=== PATIENT | female | born 1970 | race Caucasian/White ===

== ENCOUNTER 2021-06-14 01:03 | Inpatient (IN) ==
[2021-06-14 02:38] LABS: Basophils % 0.4 % (0.0-0.8); Eosinophils # 0.2 10*3/uL (0.0-0.87); Hematocrit 39.2 VOL% (35.7-47.0); Immature Granulocytes % 0.4 %; Immature Granulocytes Absolute 0.03 #; Lymphocytes % 52.9 % (21.3-54.2); Mean Corpuscular HGB Conc 33.2 GM/DL (32-36); Mean Corpuscular Volume 84.5 FL (87-102); Mean Platelet Volume 9.5 FL (9.6-12.0); Monocytes % 6.3 % (1.7-12.7); Platelet Count 251 T/CUMM (130-400); Red Blood Count 4.64 MC/CUMM (3.8-5.5); Red Cell Distribution Width 14.3 % (9.3-17.3); White Blood Count 7.6 T/CUMM (4-12)
[2021-06-14 02:50] LABS: Barbiturates Screen,Urine Negative (Negative); Benzodiazepines Screen,Urine Negative (Negative); Cannabinoid Screen,Urine Negative (Negative); Opiate Screen,Urine Negative (Negative); Phencyclidine Screen,Urine Negative (Negative)
[2021-06-14 02:51] LABS: Alanine Aminotransferase 31 U/L (13-56); Albumin 3.8 G/DL (3.4-5.0); Alkaline Phosphatase 62 U/L (45-117); Aspartate Amino Transferase 11 U/L (0-37); Blood Urea Nitrogen 11 MG/DL (7-18); Calcium 8.8 MG/DL (8.5-10.1); Carbon Dioxide 28 MMOL/L (21-32); Estimated Glom Filtration Rate 127 ML/MIN; Glucose 93 MG/DL (74-106); Osmolality,Calculated 258.8 MOS/KG (273-304); Potassium 3.5 MMOL/L (3.5-5.1); Sodium 130 MMOL/L (136-145)
[2021-06-14 02:54] LABS: Acetaminophen < 2.0 UG/ML (10-30); Salicylate 4.5 MG/DL (2.8-20)
[2021-06-14 03:12] LABS: Eosinophils 2 % (0-10); Lymphocytes 49 % (20-55); Microcytosis 1+; Platelet Estimate Normal; Segmented Neutrophils 43 % (50-85); Total Cells Counted 100
[2021-06-14 03:13] LABS: Polychromasia Slight; Stomatocytes Slight
[2021-06-14] MEDS ORDERED: ALBUTEROL 2.5 MG/3 ML NEB RESP TX PRN (04:49)
[2021-06-14 06:17] VITALS: BP 149/94
[2021-06-14 06:38] LABS: Albumin 3.4 G/DL (3.4-5.0); Bilirubin,Total 0.5 MG/DL (0.20-1.00); Calcium 8.5 MG/DL (8.5-10.1); Osmolality,Calculated 260.7 MOS/KG (273-304); Potassium 3.4 MMOL/L (3.5-5.1); Total Protein 6.4 G/DL (6.4-8.2)
[2021-06-14] MEDS: SODIUM CHLORIDE 0.9% 1,000 ML IV SCH ×3 (07:30→22:33)
[2021-06-14] MEDS: ALBUTEROL/IPRATROPIUM 3 ML NEB RESP TX SCH ×3 (08:08→19:00)
[2021-06-14] MEDS: amLODIPine 10 MG TABLET PO SCH (09:51)
[2021-06-14] MEDS: PANTOPRAZOLE 40 MG VIAL IV SCH (09:52)
[2021-06-14] MEDS: ENOXAPARIN 40 MG/0.4 ML SYRINGE SUBCUT SCH (09:52)
[2021-06-14] MEDS: hydrALAZINE 20 MG/1 ML VIAL IV PRN (11:10)
[2021-06-14 13:31] LABS: Albumin 3.4 G/DL (3.4-5.0); Bilirubin,Total 0.4 MG/DL (0.20-1.00); Calcium 8.6 MG/DL (8.5-10.1); Osmolality,Calculated 260.7 MOS/KG (273-304); Potassium 3.7 MMOL/L (3.5-5.1); Total Protein 6.3 G/DL (6.4-8.2)
[2021-06-14] MEDS: ACETAMINOPHEN 325 MG TABLET PO PRN (13:43)
[2021-06-14] MEDS ORDERED: NICOTINE 21 MG/24 HR PATCH TRANSDERM PRN (14:21)
[2021-06-14] MEDS: ONDANSETRON 4 MG/2 ML VIAL IV PRN (14:30)
[2021-06-14] MEDS: cloNIDine 0.1 MG TABLET PO SCH (15:23)
[2021-06-14] MEDS ORDERED: LORazepam 2 MG/1 ML VIAL ONE (15:43)
[2021-06-14] MEDS: LORazepam 2 MG/1 ML VIAL IV PRN (15:47)
[2021-06-14 20:58] LABS: Albumin 3.2 G/DL (3.4-5.0); Bilirubin,Total 0.4 MG/DL (0.20-1.00); Calcium 8.5 MG/DL (8.5-10.1); Osmolality,Calculated 264.4 MOS/KG (273-304); Potassium 3.8 MMOL/L (3.5-5.1); Total Protein 5.9 G/DL (6.4-8.2)
[2021-06-15] MEDS: cloNIDine 0.1 MG TABLET PO SCH ×4 (00:40→15:06)
[2021-06-15] MEDS: ACETAMINOPHEN 325 MG TABLET PO PRN ×2 (02:51→08:52)
[2021-06-15] MEDS: hydrALAZINE 20 MG/1 ML VIAL IV PRN ×2 (02:52→06:29)
[2021-06-15] MEDS: ONDANSETRON 4 MG/2 ML VIAL IV PRN ×2 (02:53→10:42)
[2021-06-15] MEDS ORDERED: LORazepam 2 MG/1 ML VIAL ONE (02:55)
[2021-06-15] MEDS: LORazepam 2 MG/1 ML VIAL IV PRN (02:57)
[2021-06-15 03:49] LABS: Basophils % 0.2 % (0.0-0.8); Eosinophils # 0.1 10*3/uL (0.0-0.87); Hematocrit 39.3 VOL% (35.7-47.0); Hemoglobin 12.5 GM/DL (12.0-16.0); Immature Granulocytes % 0.4 %; Immature Granulocytes Absolute 0.02 #; Lymphocytes # 2.1 10*3/uL (1.4-4.0); Lymphocytes % 41.1 % (21.3-54.2); Mean Corpuscular HGB Conc 31.8 GM/DL (32-36); Mean Corpuscular Volume 86.2 FL (87-102); Mean Platelet Volume 9.5 FL (9.6-12.0); Monocytes % 9.6 % (1.7-12.7); Neutrophils % 46.7 % (38.7-73.9); Platelet Count 219 T/CUMM (130-400); Red Blood Count 4.56 MC/CUMM (3.8-5.5); Red Cell Distribution Width 14.3 % (9.3-17.3)
[2021-06-15 04:05] LABS: INR 0.9; PT Patient Result 10.7 SECS (10.5-12.0)
[2021-06-15] MEDS: ALBUTEROL/IPRATROPIUM 3 ML NEB RESP TX SCH ×3 (04:26→13:28)
[2021-06-15] MEDS: SODIUM CHLORIDE 0.9% 1,000 ML IV SCH ×2 (06:25→14:32)
[2021-06-15] MEDS: amLODIPine 10 MG TABLET PO SCH (08:52)
[2021-06-15] MEDS: ENOXAPARIN 40 MG/0.4 ML SYRINGE SUBCUT SCH (08:53)
[2021-06-15] MEDS: PANTOPRAZOLE 40 MG VIAL IV SCH (08:53)
== END 2021-06-15 15:06 | DRG 918 ==
LOC: N.EDINP 01:03 → N.ED 01:03 → SUATTDRO 04:49 → N.CC 07:35
PROVIDERS: ADMIT Internal Medicine; ATTEND Internal Medicine